=== PATIENT | male | born 1955 | race Caucasian/White ===

== ENCOUNTER 2017-03-02 11:20 | Day surgery (SDC) | payer OTHER ==
[~2017-03-02] VITALS: Ht 185.4 cm; Wt 107.4 kg
[~2017-03-02 11:20] MED LIST: 0.9% Sodium Chloride 1,000 ML IV SCH; Sodium Chloride LOK Flush 10 mL Syringe IV PRN; fentaNYL-PF 50 mCg/mL 2 mL Inj IVPUSH PRN
[2017-03-02 12:13] VITALS: BP 146/94; PULSE 87; RESP 14; O2SAT 98
[2017-03-02 13:42] VITALS: BP 116/69; PULSE 85; RESP 16; O2SAT 95
[2017-03-02 13:51] VITALS: BP 127/79; PULSE 82; RESP 16; O2SAT 95
--- NOTE | 2017-03-02 14:18 | ENDO ---
[address] [address] ENDOSCOPY PROCEDURE PATIENT: LUIS HUFFMAN : 1955 MR#: [id number] ADMIT: 03/02/2017 JOB ID: [id number] DATE: 03/02/2017 PROCEDURE: Colonoscopy. INDICATIONS: Screening. The patient's ASA classification is 2. Mallampati score is 2. MEDICATIONS: 1. Versed 3 mg. 2. Fentanyl 75 mcg. INSTRUMENT USED: PCF H 180 AL. PREPARATION QUALITY: Was good. PROCEDURE DETAILS: After informed consent was obtained, the patient was brought into the GI suite, where he was placed on oxygen via nasal cannula and monitored with continuous pulse oximeter, telemetry and blood pressure monitoring. A time-out was performed. Then, he was placed in the left lateral decubitus position and medications were administered for sedation. Digital rectal examination with palpation of the prostate was performed, which was unremarkable. The colonoscope was then inserted into the rectum and advanced under direct visualization to the cecum, which was identified by the presence of the ileocecal valve and appendiceal orifice. Once the cecum was reached colonoscope was withdrawn back into the rectum as the mucosa and lumen were examined. In the rectum, retroflexion was performed. Following retroflexion, remaining air in the rectum was suctioned, and the procedure was completed. FINDINGS: 1. In the transverse colon, there was an approximately 4 mm sessile polyp was removed with a hot snare. 2. In the transverse colon, there was additionally a diminutive polyp that was removed with cold biopsy forceps. IMPRESSION: Two transverse colon polyps. RECOMMENDATIONS: 1. Repeat colonoscopy in five years. 2. Avoid nonsteroidal anti-inflammatory drugs and anticoagulants for 72 hours. COMPLICATIONS: None. ESTIMATED BLOOD LOSS: Less than 5 mL.
--- NOTE | 2017-03-05 15:50 | PATH ---
SURGICAL PATHOLOGY Attending Physician:Love Mcghee CASE STATUS: Signed Out PATIENT NAME: LUIS HUFFMAN PID: [id number] : 1955 DATE COLLECTED:03/02/2017 00:00 SPECIMEN: Colon, Polyp CLINICAL HISTORY: 1). TRANSVERSE POLYPS FINAL DIAGNOSIS: Transverse Colon, Polyps, Biopsy: Portions of tubular adenoma x3; negative for high-grade dysplasia. Superficial portion of colorectal mucosa x1 with no diagnostic abnormality. ICD10: K63.5 GROSS DESCRIPTION: The specimen is received in one formalin filled container labeled with the patient's name, sublabeled "transverse polyp" and consists of 4 portions of tissue which aggregate to 0.4 x 0.3 x 0.3 CM. The specimen is entirely submitted in one cassette. 03/03/2017 [facility] ICD-9 CODES: CPT CODES: 1: 34563 Electronically Signed Out Adina Wren MD [facility] Pathology [facility] [address], [place] [address] Technical component performed at [facility], [address] [place] [address] Ave[address], [place], [address]
== END 2017-03-02 23:59 | disposition home or self-care (01) ==
LOC: END 11:20
PROVIDERS: ATTEND Internal Medicine Gastroenterology
DX: Z12.11 Encounter for screening for malignant neoplasm of colon (principal); D12.3 Benign neoplasm of transverse colon; G47.30 Sleep apnea, unspecified; E78.5 Hyperlipidemia, unspecified
CPT/HCPCS: 45380; 45385; G0500; J2250; J3010; J7030